=== PATIENT | male | born 1935 | race Caucasian/White ===

== ENCOUNTER → 2017-08-27 | Outpatient (CLI) | payer MEDICARE, OTHER ==
[~2017-08-27] MED LIST: AMLO5TAB2 PO; ATOR10TA15 PO; FLUT50SP EACH NARE; HYDR-3516 PO; MELO15TA20 PO; METO50TA PO; OMEP20TA93 PO; VALS160T6 PO
[2017-08-27 09:27] LABS: AUTOMATED NEUTROPHIL # 4.6 TH/MM3 (1.8-7.7); BASOPHIL # 0.1 TH/MM3 (0-0.2); BASOPHIL % 0.7 % (0.0-2.0); EOSINOPHIL # 0.3 TH/MM3 (0-0.4); EOSINOPHIL % 4.4 % (0.0-4.0); HEMATOCRIT 45.7 % (39.0-51.0); HEMOGLOBIN 15.4 GM/DL (13.0-17.0); LYMPH % 27.6 % (9.0-44.0); LYMPHOCYTE # 2.1 TH/MM3 (1.0-4.8); MEAN CELL VOLUME 86.8 FL (80.0-100.0); MEAN CORPUSCULAR HEMOGLOBIN 29.3 PG (27.0-34.0); MEAN CORPUSCULAR HGB CONC 33.7 % (32.0-36.0); MEAN PLATELET VOLUME 8.9 FL (7.0-11.0); MONOCYTE # 0.5 TH/MM3 (0-0.9); NEUT % 60.3 % (16.0-70.0); PLATELET COUNT 206 TH/MM3 (150-450); RED BLOOD COUNT 5.27 MIL/MM3 (4.50-5.90); RED CELL DISTRIBUTION WIDTH 13.8 % (11.6-17.2); WHITE BLOOD COUNT 7.6 TH/MM3 (4.0-11.0)
[2017-08-27 09:29] LABS: INTERNATIONAL NORMALIZED RATIO 1.1 RATIO; PROTHROMBIN TIME - PATIENT 11.5 SEC (9.8-11.6)
[2017-08-27 09:31] LABS: BILIRUBIN, URINE NEG (NEG); BLOOD, URINE NEG (NEG); GLUCOSE,URINE NEG (NEG); HYALINE CAST, URINE 7 /lpf (RARE); KETONE, URINE NEG (NEG); MUCUS URINE FEW /lpf (OCC); NITRITE,URINE NEG (NEG); PH, URINE 6.5 (5.0-8.5); URINE COLOR YELLOW (YELLW/STRAW); URINE LEUKOCYTE ESTERASE NEG (NEG)
[2017-08-27 09:48] LABS: ALBUMIN 3.7 GM/DL (3.4-5.0); AST (GOT) 12 U/L (15-37); BICARBONATE 29.5 MEQ/L (21.0-32.0); BLOOD UREA NITROGEN 19 MG/DL (7-18); CALCIUM 9.3 MG/DL (8.5-10.1); CHLORIDE 106 MEQ/L (98-107); CREATININE 1.24 MG/DL (0.60-1.30); GLOMERULAR FILTRATION RATE 56 ML/MIN (>89); GLUCOSE,FASTING 104 MG/DL (74-99); SODIUM (NA) 142 MEQ/L (136-145)
[2017-08-27 09:49] LABS: ALT (GPT) 22 U/L (12-78)
[2017-08-27 09:51] LABS: ALKALINE PHOSPHATASE 90 U/L (45-117); TOTAL BILIRUBIN ADULT 0.7 MG/DL (0.2-1.0); TOTAL PROTEIN 7.3 GM/DL (6.4-8.2)
--- NOTE | 2017-08-27 11:14 | RADRPT ---
EXAM DATE/TIME: 08/27/2017 11:03 [facility] COMPARISON: No previous studies available for comparison. INDICATIONS : Evaluate for pneumonia, pneumothorax or communicable disease, Pre op laminectomy. MEDICAL HISTORY : Hypertension. SURGICAL HISTORY : aortic valve replacement ENCOUNTER: Initial ACUITY: 1 day PAIN SCORE: 0/10 LOCATION: Bilateral chest FINDINGS: PA and lateral views of the chest demonstrate the lungs to be symmetrically aerated without evidence of mass, infiltrate or effusion. Sternal wires previous bypass noted and valve replacement noted.. The cardiomediastinal contours are unremarkable. Osseous structures are intact. CONCLUSION: No acute disease. Bennett Morton MD FACR on August 27, 2017 at 11:10 Board Certified Radiologist. This report was verified electronically.
--- NOTE | 2017-08-27 20:55 | EKG ---
Date Performed: 08/27/2017 Time Performed: 09:21:46 PTAGE: 81 years EKG: Sinus rhythm LEFT ANTERIOR FASCICULAR BLOCK SEPTAL MYOCARDIAL INFARCTION, OF INDETERMINATE AGE ABNORMAL ECG NO PREVIOUS TRACING DOCTOR: Jones Castillo Interpretating Date/Time 08/27/2017 20:54:59
== END ==
LOC: CPRE 08:38
PROVIDERS: ATTEND Neurological Surgery
DX: Z01.812 Encounter for preprocedural laboratory examination (principal); Z01.811 Encounter for preprocedural respiratory examination; Z01.810 Encounter for preprocedural cardiovascular examination; M51.36 Other intervertebral disc degeneration, lumbar region; I44.4 Left anterior fascicular block
CPT/HCPCS: 36415; 71046; 80053; 81001; 85025; 85610; 85730; 87640; 87641; 93005

== ENCOUNTER 2017-09-03 13:15 | Inpatient (IN) | payer MEDICARE, OTHER ==
[~2017-09-03] VITALS: Ht 167.6 cm; Wt 80.0 kg
[~2017-09-03 13:15] MED LIST changes: -HYDR-3516 PO
[2017-09-05] MEDS ORDERED: LACTATED RINGER'S 1000 ML IV PRN (09:30)
[2017-09-05] MEDS ORDERED: POVIDONE IODINE 5% (ANTISEPSIS KIT) 4 APPLICATIONS EACH NARE PRN (09:30)
[2017-09-05] MEDS ORDERED: SODIUM CHLORID 0.9% 500 ML IV PRN (09:30)
[2017-09-05] MEDS ORDERED: VANCOMYCIN 1 GM/200 ML PREMIX ON-CALL IV SCH (09:30)
[2017-09-05] MEDS ORDERED: METOPROLOL TARTRATE 25 MG TAB PO PRN (09:30)
[2017-09-05] MEDS ORDERED: INSULIN HUMAN REGULAR 1,000 UNITS/10 ML VIAL SQ PRN (09:30)
[2017-09-05] MEDS ORDERED: CHLORHEXIDINE GLUCONATE 2 % 1 PACK (2 CLOTHS) TOPICAL PRN (09:30)
[2017-09-05] MEDS ORDERED: VANCOMYCIN HCL 1000 MG VIAL ONE (11:25)
[2017-09-05] MEDS ORDERED: GELFOAM SIZE 100 ONE (11:25)
[2017-09-05] MEDS ORDERED: HEPARIN SODIUM - SQ 10,000 UNITS/ML VIAL ONE (11:25)
[2017-09-05] MEDS ORDERED: ceFAZolin 2 GM PREMIX 50 ML ONE (11:25)
[2017-09-05] MEDS ORDERED: THROMBIN (TOPICAL) 5,000 UNIT VIAL ONE (11:25)
[2017-09-05] MEDS ORDERED: ePHEDrine/NS 25 MG/5 ML SYRINGE IV ONE (12:00)
[2017-09-05] MEDS ORDERED: ceFAZolin INJ 1,000 MG VIAL IV ONE ×2 (12:00→16:25)
[2017-09-05] MEDS ORDERED: LIDOCAINE HCL 1% PF 5 ML SYRINGE OTHER ONE (12:00)
[2017-09-05] MEDS ORDERED: SODIUM CHLORID 0.9% 500 ML INJ 500 ML IV ONE (12:00)
[2017-09-05] MEDS ORDERED: ONDANSETRON HCL 4 MG/2 ML VIAL IV ONE (12:00)
[2017-09-05] MEDS ORDERED: ROCURONIUM INJ 50 MG/5 ML SYRINGE IV PUSH ONE (12:00)
[2017-09-05] MEDS ORDERED: DEXAMETHASONE SOD PHOS 4 MG/ML VIAL IV ONE (12:00)
[2017-09-05] MEDS ORDERED: PROPOFOL 200 MG/20 ML AMP IV ONE (12:00)
[2017-09-05] MEDS ORDERED: PHENYLEPH/NS 1000 MCG/10 ML SYR IV ONE (12:00)
[2017-09-05] MEDS ORDERED: LACTATED RINGER'S 1000 ML INJ 1,000 ML IV ONE (12:00)
[2017-09-05] MEDS ORDERED: NORMOSOL R INJ 1,000 ML IV ONE (12:00)
[2017-09-05] MEDS ORDERED: PHENYLEPHRINE HCL 10 MG/ML VIAL IV ONE (12:00)
[2017-09-05] MEDS ORDERED: BUPIVACAINE HCL PF 0.25% 30 ML VIAL ONE (13:47)
[2017-09-05] MEDS ORDERED: LIDOCAINE 0.5%/EPINEPHrine 1:200,000 SOLN 50 ML VIAL ONE (13:47)
[2017-09-05] MEDS ORDERED: BUPIVACAINE HCL PF 0.5% 30 ML VIAL ONE (13:50)
[2017-09-05] MEDS ORDERED: PROPOFOL 500 MG/50 ML INJ 200 ML ONE (16:16)
[2017-09-05] MEDS: NS + KCL 20 MEQ INJ 1,000 ML IV SCH (17:34)
--- NOTE | 2017-09-05 17:38 | PD.OP ---
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 Microsurgical dissection Anesthesia: general Surgeon: Mikel Smith Medical Records Secretary(s): Emily blue Operation and Findings: INDICATIONS FOR THE SURGICAL PROCEDURE Mr Yi is a 81 year-old male who presented with intractable mechanical back pain and suzi evidence of L4 and L5 lower extremity radiculopathy. He has failed maximum nonsurgical management including multiple modalities of conservative treatment as well as pain management interventions by an interventional pain specialist. A surgical decompression and arthrodhesis were indicated as a last resort. The [id number] details of the procedure, indications, alternatives, risks and potential complications were fully discussed with the patient. The patient fully understood. All the questions were answered. No guarantees were given. He voiced requesting the procedure and provided informed consents. He was offered the alternative of delaying the procedure and continuing with nonsurgical management. DETAILS OF THE SURGICAL PROCEDURE Prior to the procedure, the procedure, risks, and potential complications revisited with the patient. Placement of electrodes for intraoperative neurophysiological monitoring was completed. The patient was taken to the operative room, and following induction of general anesthesia, endotracheal intubation was performed. A Medina catheter, bilateral LUTHER hose and sequential compression devices were placed and kept throughout the procedure. The patient was positioned prone, over a Paul table over a bolsters. All pressure in the preoperative surgical holding room points were carefully padded with eggcrate and gel mattress. The eyes were tapped shut after ointment was applied by the anesthesiologist to prevent corneal abrasion. A Nithya hugger was placed over the expossed lower body to maintain control of the core body temperature. The electrophysiological team placed the needles and electrodes in their proper location and baseline SSEP's and motor evoked potentials were registered. The entrance to each pedicles was marked using a C arm. The lumbar region was prepped and draped in the usual sterile fashion. The surgical procedure was performed in several steps as follow: SURGICAL APPROACH Once the patient was positioned, a localizing cross-table lateral and AP x-ray was performed with a C-arm. Two paramedian small incisions were outlined on the skin approximately 3cm from the midline. The skin incisions were made with a # 10 blade. Small bleeders were controlled with the cautery. The dissection was then carried out into deeper planes and through the thoracolumbar fascia with a Bovie. The intermuscular septum was identified and the muscles were blunted dissected along the septum. The facets and transverse process of L3-4, L4,5 were exposed and the proper anatomical landmarks were identidied. A microsurgical self-retaining retractor was placed on the incision, and a localizing lateralizing cross-table x-ray was performed with an instrument underneath a lamina of the lumbar spine. INSTRUMENTAL FIXATION At this point in the procedure, placement of bilateral transpedicular screws was necessary for stabilization of the spine. Initially, the entry point for the screw was selected anatomically at the junction of the facet, with the transverse process, and the pars interarticularis at L3-4, L4,5. This was started with a Giamshetti needle, followed by the use of K wire. A tap was used to create the threads for the screws. Finally bilateral transpedicular screws were carefully placed bilaterally at L3, L4, and L5 under fluoroscopic visualization. An appropriate purchase was achieved with all screws. The position of each screw was assessed anatomically with an AP, lateral, oblique Xrays. An intraoperative scan view of the spine was then performed using the iso -centric c-arm. Each screw was then assessed electrophysiologically stimulating each screw with a nerve stimulator. SURGICAL DECOMPRESSION There was significant mass effect with compression of the neural structures. In order to relieve neural compression, it was necessary to perform a decompressive laminectomy, with decompression of the spinal canal and bilateral lateral recesses. Note that the scope of such decompression was significantly more extensive than the minimal exposure necessary to perform an interbody fusion, as there was extreme facet arthropathy with severe degeneration of the disk spaces and stenosis cause by the hyperthrophic joint facets. At this point of the procedure the operative microscope was draped in the usual sterile fashion and brought to the field. The rest of the surgical procedure was performed using microdissection technique with the exception of the closure. Under the operating microscope, a decompressive laminectomy was carried out at L3-4, L4,5 as follow: The laminae, base of the spinous processes and facets were carefully drilled exposing the ligamentum flavum. The facets were abnormal with severe spondylolisthesis and gross mechanical instability. A large disk protusion was compressing the neural structures and exiting nerve roots. A near complete facetectomy was necessary resulting in further mechanical instability. The ligamentum flavum appeared hypertrophic, resulting on mass effect on the dorsal surface of the neural structures. The superior free border of the ligamentum flavum was elevated with a ligament dissector and the ligamentum flavum was removed with a 3 and 4 mm Kerrison forceps. The ligament was very adherent to the dural sac and during the dissection, ans extreme care was taken during the dissection. The exiting nerve roots were identified, and a wide foraminotomy was performed with a Kerrison in their trajectory towards the neural foramen. Epidural veins located laterally to the dural sac were coagulated with the bipolar cautery, and then incised using microscissors. Gentle medial retraction of the dural sac allowed me to expose the disc space for the discectomy. Upon completion of the discectomy, an excellent decompression of the neural structures was achieved. Increased motion was noted thorough the procedure, which was consistent with mechanical instability at L3-4, L4,5. INTERBODY ARTHRODHESIS In order to correct the narrowing of the disk space and maintain distraction of the space, and to achieve a solid interbody fusion, it was necessary the insertion of an interbody device into the disk space. Otherwise, the disk space would collapse, compromising the result of the surgical procedure. At this point of the procedure, the annulus fibrosus of the disk was carefully coagulated with a bipolar cautery and incised using an 11 bladed knife. Then, a microdiscectomy was carried out in a standard fashion using a combination of straight and up-biting pituitary forceps. A reverse angle curette was applied underneath the posterior longitudinal ligament, and used to push the disk fragments into the disk space, so they can be safely removed with a pituitary forceps. Once the discectomy was completed, it was necessary to decorticate the endplates, in order to eliminate the cartilaginous endplate and to expose healthy bone appropriate to perform the interbody fusion. The endplates at L4,5 were then thoroughly decorticated using increasing size bone gayla and ring curets, eliminating the cartilaginous fragments from both, the superior and inferior endplates. A disk space distractor was applied to the pedicle screws and gentle distraction was applied. This maneuver was assisted by the use of a disk distractor. Increased motility was noted at the disk, which was consistent with instability due to facet arthropathy. Once a thorough preparation of the disk space was achieved, the disk space was irrigated with antibiotic solution, and the interbody fusion was performed by carefully impacting PPEK cages filled with autologous iliac crest bone graft. The use of several shoe impactors with different angulation, allowed me for an excellent, proper position of the interbody cages at L4,5. A solid position of the cage with good purchase was achieved. The position of the cages were assessed anatomically with a probe and radiologically with the C-arm. POSTEROLATERAL FUSION The posterolateral fusion is a critical component to the procedure, to prevent future fatigue and failure of the instrumental fixation. Initially, the transverse processes of the vertebral bodies, lateral surface of the facets and the lateral gutters of the spine were carefully cleaned, eliminating all soft tissue and muscle attachments. The area was then irrigated with a large amount of antibiotic solution. Subsequently, the transverse processes, lateral surface of the facets, and lateral gutters of the spine were thoroughly decorticated using the TPS drill with a 5mm cutting juanjo, exposing cancellous bone, in preparation for the posterolateral fusion. The incision was again irrigated with antibiotic solution. Then, the posterolateral fusion was then performed by carefully packing the lateral gutters of the spine at L3-4, L4,5 with autologous iliac crest bone combined with demineralized bone matrix. I packed as much bone as possible. COMPLETION OF THE INSTRUMENTATION AND CLOSURE The rods were brought to the field, applied to all the screws, and the screw caps were sequentially applied. Compression was performed between the pedicle screws, and final tightening of the screws was completed using a torque wrench. The incision was again thoroughly irrigated with several liters of antibiotic solution, and hemostasis secured with the bipolar cautery. A Valsalva Maneuver performed by the anesthesiologist failed to show any evidence of cerebrospinal fluid leak or bleeding. A 7 mm Paul-Nolan drain was left in the epidural space and externalized through a separate stab incision. The incision was then closed in planes. 0 Vicryl was used in an interrupted fashion to close the thoracolumbar fascia and the superficial fascia. The subcutaneous tissue was then approximated using 3-0 Vicryl in an interrupted fashion. Special care was taken to avoid space. The skin was then closed with 4-0 Vicryl in a running, subcuticular fashion. Dermabond was applied to the skin. Each plane of closure was irrigated with antibiotic solution. At the end of the procedure the sponge, needle and instrument counts were all correct. Estimated blood loss was 300 cc. No blood transfusion was given. The entire procedure was performed using continuous electrophysiological monitoring of the somatosensorial evoked potentials and EMG. The patient received prophylactic antibiotics. The patient was then extubated and transferred to the recovery room in stable condition. Mikel Smith MD Sep 05, 2017 17:38
[2017-09-05] MEDS ORDERED: ACETAMINOPHEN 325 MG TAB PO PRN (17:45)
[2017-09-05] MEDS ORDERED: NALOXONE HCL 0.4 MG/ML AMP IV PUSH PRN (17:45)
[2017-09-05] MEDS ORDERED: MORPHINE SULFATE 4 MG/ML INJ IV PUSH PRN ×2 (17:45)
[2017-09-05] MEDS ORDERED: diphenhydrAMINE HCL 50 MG/ML VIAL IV PUSH PRN (17:45)
[2017-09-05] MEDS ORDERED: HYDROmorphone HCL PCA 6 MG/30 ML IV SCH (17:45)
[2017-09-05] MEDS ORDERED: MIDAZOLAM HCL 2 MG/2 ML VIAL ONE (18:30)
[2017-09-05] MEDS ORDERED: DO NOT ADM ANY ANTICOAGULANT DRUGS PRN (18:45)
--- NOTE | 2017-09-05 18:49 | RADRPT ---
EXAM DATE/TIME: 09/05/2017 12:33 [facility] COMPARISON: No previous studies available for comparison. INDICATIONS : Fusion L3,L4 and L4,L5 with screws and rods placement. MEDICAL HISTORY : Hypertension. SURGICAL HISTORY : aortic valve replacement ENCOUNTER: Initial ACUITY: 1 day PAIN SCORE: Non-responsive. LOCATION: Lumbar spine. FINDINGS: Two view examination was performed. Transpedicular screws are seen at L3-L4 L5 levels. These are secu red by vertical rods. A stabilization device at the L4-5 disc level. The hardware is well-placed. CONCLUSION: Successful placement of surgical hardware. Home Kauffman MD on September 05, 2017 at 18:46 Board Certified Radiologist. This report was verified electronically.
[2017-09-05] MEDS ORDERED: *MEPERIDINE 25 MG INJ VIAL PERIprocedural Use ONLY ONE (18:50)
[2017-09-05] MEDS ORDERED: *morphine SULFATE 4 MG/ML PERIprocedure ONLY ONE (20:26)
[2017-09-05] MEDS: FLUTICASONE PROPIONATE 50 MCG/ACT 16 GM NASAL SPRAY EACH NARE SCH (20:33)
[2017-09-05] MEDS: ATORVASTATIN 10 MG TAB PO SCH (21:00)
[2017-09-05] MEDS ORDERED: PCA - TOTAL MG DILAUDID DELIVERED PER SHIFT SCH (22:00)
[2017-09-05] MEDS: ceFAZolin 2 GM PREMIX 50 ML IV SCH (23:20)
[2017-09-06] MEDS: NS + KCL 20 MEQ INJ 1,000 ML IV SCH ×3 (05:00→23:34)
[2017-09-06 05:43] LABS: BASOPHIL % 0.2 % (0.0-2.0); HEMATOCRIT 31.9 % (39.0-51.0); HEMOGLOBIN 10.9 GM/DL (13.0-17.0); LYMPH % 7.3 % (9.0-44.0); LYMPHOCYTE # 0.9 TH/MM3 (1.0-4.8); MEAN CELL VOLUME 86.9 FL (80.0-100.0); MEAN CORPUSCULAR HEMOGLOBIN 29.8 PG (27.0-34.0); MEAN CORPUSCULAR HGB CONC 34.3 % (32.0-36.0); MEAN PLATELET VOLUME 8.7 FL (7.0-11.0); MONO % 6.7 % (0.0-8.0); MONOCYTE # 0.8 TH/MM3 (0-0.9); NEUT % 85.8 % (16.0-70.0); PLATELET COUNT 185 TH/MM3 (150-450); RED BLOOD COUNT 3.67 MIL/MM3 (4.50-5.90); RED CELL DISTRIBUTION WIDTH 13.9 % (11.6-17.2); WHITE BLOOD COUNT 11.7 TH/MM3 (4.0-11.0)
[2017-09-06 06:01] LABS: BICARBONATE 26.4 MEQ/L (21.0-32.0); CALCIUM 7.7 MG/DL (8.5-10.1); CREATININE 1.12 MG/DL (0.60-1.30)
[2017-09-06] MEDS: ceFAZolin 2 GM PREMIX 50 ML IV SCH ×2 (07:50→15:29)
[2017-09-06 09:00] VITALS: BP_SYST 121; BP_SYST 129; BP_DIAS 62; BP_DIAS 64; PULSE 75; RESP 20; TEMP 98.4; O2SAT 96
[2017-09-06] MEDS: FLUTICASONE PROPIONATE 50 MCG/ACT 16 GM NASAL SPRAY EACH NARE SCH ×2 (09:00→19:57)
[2017-09-06] MEDS ORDERED: PANTOPRAZOLE SODIUM 40 MG VIAL IVP SCH (09:00)
[2017-09-06] MEDS ORDERED: METOPROLOL TARTRATE 50 MG TAB PO SCH (09:00)
[2017-09-06] MEDS: PANTOPRAZOLE SOD 20 MG DELAYED RELEASE TAB PO SCH (09:58)
[2017-09-06 10:00] VITALS: PULSE 83
[2017-09-06] MEDS: amLODIPine BESYLATE 5 MG TAB PO SCH (10:00)
--- NOTE | 2017-09-06 10:16 | PD.CONS ---
[facility] By [facility] Reason for Consult Medical management Primary Care Physician Non-Staff Diagnoses: History of Present Illness Mr. Yi is an 81-year-old male with a history of intractable back pain and evidence of L4 and L5 lower extremity radiculopathy who underwent neurosurgical decompression and arthrodesis on 09/05/[address] Smith. Patient has a history of hyperlipidemia, hypertension and obstructive sleep apnea. He uses CPAP at home. At the time of this interview, patient is somewhat agitated. He was somewhat frustrated during this interview. He inquires about sitting up in bed and other activities. After discussing with physical therapy and given his L- spine surgery, we discussed with neurosurgery PA who will evaluate him later. Will obtain TLSO brace and start regular diet. Patient denies any chest pain, shortness of breath, fever or chills. No changes in bowel or bladder habits. Review of Systems Except as stated in HPI: all other systems reviewed are Neg Past Family Social History Allergies: Coded Allergies: No Known Allergies (Unverified , 09/05/17) Past Medical History Hypertension, hyperlipidemia, intractable back pain Past Surgical History Aortic valve replacement, bilateral hip replacement, herniated disc repair Reported Medications Current Medications Medications (Trade) Dose Ordered Sig/Mart Route Start Time Stop Time Status Last Admin (Narcan Inj) 0.4 mg UNSCH PRN IV PUSH 09/05/17 17:45 (Benadryl Inj) 25 mg Q6H PRN IV PUSH 09/05/17 17:45 (Dilaudid [employer] Inj) 6 mg UNSCH IV 09/05/17 17:45 09/05/17 18:47 [employer] Dosage Infused (Pha) 1 Q8HR .XX 09/05/17 22:00 Potassium Chloride/Sodium Chloride 1,000 ml @ 100 mls/hr Q10H IV 09/05/17 17:34 09/06/17 05:00 Cefazolin Sodium/ Dextrose 50 ml @ 100 mls/hr Q8H IV 09/06/17 00:00 09/06/17 16:29 09/06/17 07:50 (Protonix Inj) 40 mg DAILY IVP 09/06/17 09:00 (Morphine Inj) 2 mg Q2H PRN IV PUSH 09/05/17 17:45 (Morphine Inj) 4 mg Q2H PRN IV PUSH 09/05/17 17:45 (Tylenol) 650 mg Q4H PRN PO 09/05/17 17:45 (Norvasc) 5 mg DAILY PO 09/06/17 09:00 09/06/17 10:00 (Lipitor) 10 mg HS PO 09/05/17 21:00 (Flonase Chadd Spr) 1 spray BID EACH NARE 09/05/17 21:00 (Lopressor) 50 mg DAILY PO 09/06/17 09:00 09/06/17 09:57 (Protonix) 20 mg DAILY PO 09/06/17 09:00 09/06/17 09:58 Miscellaneous Information ALL NURSING DEPARTME... UNSCH PRN .XX 09/05/17 18:45 09/06/17 18:44 Family History Noncontributory Social History Patient denies using alcohol, tobacco, illicit drugs Physical Exam Vital Signs Vital Signs Date Time Temp Pulse Resp B/P (MAP) Pulse Ox O2 Delivery O2 Flow Rate FiO2 09/06/17 06:00 74 16 99/53 (68) 96 Nasal Cannula 3 09/06/17 05:00 76 16 99/56 (70) 94 Nasal Cannula 3 09/06/17 04:00 78 16 104/54 (71) 96 Nasal Cannula 3 09/06/17 03:00 76 16 98/54 (69) 95 Nasal Cannula 3 09/06/17 02:00 82 16 101/59 (73) 94 Nasal Cannula 3 09/06/17 01:00 78 16 102/56 (71) 94 Nasal Cannula 3 09/06/17 00:00 74 16 100/57 (71) 95 Nasal Cannula 3 09/05/17 23:00 82 16 100/58 (72) 95 Nasal Cannula 3 09/05/17 22:00 80 16 104/56 (72) 95 Nasal Cannula 3 09/05/17 21:15 97.4 80 16 101/57 (72) 95 Nasal Cannula 3 09/05/17 20:15 83 20 120/59 (79) 95 115/61 (79) 09/05/17 19:00 83 20 123/59 (80) 95 119/61 (80) 18 18:47 20 09/05/17 18:45 85 20 124/63 (83) 95 116/62 (80) 09/05/17 18:30 83 20 112/61 (78) 95 104/59 (74) 09/05/17 18:15 97.6 85 20 95/53 (67) 95 Nasal Cannula 2 100/54 (69) Physical Exam GENERAL: This is a well-nourished, well-developed patient, in no apparent distress. SKIN: No rashes, ecchymoses or lesions. Warm and dry. HEAD: Atraumatic. Normocephalic. No temporal or scalp tenderness. EYES: Pupils equal round and reactive. No injection or drainage. ENT: Nose without bleeding, purulent drainage or septal hematoma. Airway patent. NECK: Trachea midline. No lymphadenopathy. Supple, nontender, no meningeal signs. CARDIOVASCULAR: Regular rate and rhythm without murmurs, gallops, or rubs. No JVD. RESPIRATORY: Clear to auscultation. Breath sounds equal bilaterally. No wheezes , rales, or rhonchi. GASTROINTESTINAL: Abdomen soft, non-tender, nondistended. No guarding. MUSCULOSKELETAL: Extremities without clubbing, cyanosis, or edema. Status post L3-L4, L4-L5 laminectomy. NEUROLOGICAL: Awake and alert. Cranial nerves II through XII intact. No focal neurological deficits. Normal speech. Laboratory Laboratory Tests Test 09/06/17 05:20 White Blood Count 11.7 Red Blood Count 3.67 Hemoglobin 10.9 Hematocrit 31.9 Mean Corpuscular Volume 86.9 Mean Corpuscular Hemoglobin 29.8 Mean Corpuscular Hemoglobin Concent 34.3 Red Cell Distribution Width 13.9 Platelet Count 185 Mean Platelet Volume 8.7 Neutrophils (%) (Auto) 85.8 Lymphocytes (%) (Auto) 7.3 Monocytes (%) (Auto) 6.7 Eosinophils (%) (Auto) 0.0 Basophils (%) (Auto) 0.2 Neutrophils # (Auto) 10.0 Lymphocytes # (Auto) 0.9 Monocytes # (Auto) 0.8 Eosinophils # (Auto) 0.0 Basophils # (Auto) 0.0 CBC Comment DIFF FINAL Differential Comment Blood Urea Nitrogen 20 Creatinine 1.12 Random Glucose 127 Calcium Level 7.7 Sodium Level 140 Potassium Level 3.7 Chloride Level 107 Carbon Dioxide Level 26.4 Anion Gap 7 Estimat Glomerular Filtration Rate 63 Result Diagram: 09/06/1720 09/06/17 0520 Imaging Last Impressions Lumbar Spine X-Ray 09/05/17 0000 Signed Impressions: Service Date/Time: Tuesday, September 05, 2017 12:33 - CONCLUSION: Successful placement of surgical hardware. Home Kauffman MD Assessment and Plan Assessment and Plan Mr. Yi is an 81-year-old male with a history of hypertension, hyperlipidemia, obstructive sleep apnea who underwent L3-L4, L4-L5 laminectomy on 09/05/2017. Hospital service was consulted for medical management. L3-L4, L4-5 degenerative disk disease with spondylolisthesis Secondary spinal stenosis s/p Laminectomy, interbody arthrodesis D/C [employer] pump, patient is not using it. Pain management with acetaminophen, Elizabeth as needed and morphine IV for breakthrough. Will order TLSO brace Hypertension Hyperlipidemia Continue home medications amlodipine and atorvastatin. Obstructive sleep apnea -we will ask RT to evaluate his CPAP machine that he brought from home. He can use CPAP machine at night. Full code. SCDs. Thank you for the consult. We will continue to follow this patient with you. Claribel Fountain DO Sep 06, 2017 10:16 am
[2017-09-06 12:00] VITALS: BP 162/77; PULSE 80; RESP 21; TEMP 98.4; O2SAT 96
--- NOTE | 2017-09-06 12:11 | HHI.NSPN ---
(Chalo Zacarias) History Chief Complaint: Sore across the mid lumbar region. (Chalo Zacarias) Interval History 09/05: The patient went to the operating room for a L3-4 and L4-L5 laminectomy with interbody arthrodhesis using a PEEK cage, instrumental fixation and posterolateral fusion. Post-operatively he was transferred to the ISC unit for further care and monitoring due to hypotension. 09/06: When seen this afternoon the patient is awake and alert working on his cellphone. He says he is doing good. Across the mid lumbar region he says he is "sore" but it isn't painful. He has no pain radiation down the right lower extremity now. He denies any numbness or tingling to the extremities or any pain to the left lower extremity. He denies any headache, dizziness, shortness of breath, chest pain, palpitations, irregular heartbeat, abdominal pain or nausea. Upon examination his sensation is intact and his muscle strength is strong to the lower extremities. He does have mild tenderness to palpation across the mid lumbar back. (Chalo Zacarias) Exam Results 09/04/17 09/04/17 09/05/17 09/05/17 09/06/17 09/06/17 05:59 17:59 05:59 17:59 05:59 17:59 Intake Total 2500 ml 1114 ml Output Total 800 ml 230 ml 550 ml Balance 1700 ml -230 ml 564 ml Intake IV Total 1114 ml Other 2500 ml Output Urine Total 50 ml Drainage Total 130 ml 50 ml Estimated Blood Loss 500 ml Other 300 ml 100 ml 450 ml Vital Signs Date Time Temp Pulse Resp B/P (MAP) Pulse Ox O2 Delivery O2 Flow Rate FiO2 09/06/17 08:35 74 16 110/59 (76) 97 Nasal Cannula 3 09/06/17 07:00 72 16 98/55 (69) 97 Nasal Cannula 3 09/06/17 06:00 74 16 99/53 (68) 96 Nasal Cannula 3 09/06/17 05:00 76 16 99/56 (70) 94 Nasal Cannula 3 09/06/17 04:00 78 16 104/54 (71) 96 Nasal Cannula 3 09/06/17 03:00 76 16 98/54 (69) 95 Nasal Cannula 3 09/06/17 02:00 82 16 101/59 (73) 94 Nasal Cannula 3 09/06/17 01:00 78 16 102/56 (71) 94 Nasal Cannula 3 09/06/17 00:00 74 16 100/57 (71) 95 Nasal Cannula 3 09/05/17 23:00 82 16 100/58 (72) 95 Nasal Cannula 3 09/05/17 22:00 80 16 104/56 (72) 95 Nasal Cannula 3 09/05/17 21:15 97.4 80 16 101/57 (72) 95 Nasal Cannula 3 09/05/17 20:15 83 20 120/59 (79) 95 115/61 (79) 09/05/17 19:00 83 20 123/59 (80) 95 119/61 (80) 09/05/17 18:47 20 09/05/17 18:45 85 20 124/63 (83) 95 116/62 (80) 09/05/17 18:30 83 20 112/61 (78) 95 104/59 (74) 09/05/17 18:15 97.6 85 20 95/53 (67) 95 Nasal Cannula 2 100/54 (69) 09/05/17 09:34 98.7 76 16 174/98 (123) 98 (Chalo Zacarias) Physical Examination GENERAL: Awake & alert in bed working with his cellphone. His affect is normal & he readily interacts. No apparent distress. HEENT: Normocephalic, atraumatic. CARDIOVASCULAR: S1S2 w/RRR w/o M/G/R. Monitor is sinus rhythm w/o any ectopy noted. RESPIRATORY: CTAB w/o W/R/R, equal excursion, non-laboured, on RA. GASTROINTESTINAL: Abdomen soft, non-tender, positive bowel sounds. MUSCULOSKELETAL: WRIGHT spontaneously & purposefully w/o difficulty. No evident clubbing or deformity. The midline lumbar spine and laterally on each side is mildly TTP, the dressing is intact w/some sanguinous drainage to the mid superior portion. There is a NICOLASA drain to bulb suction w/serosanguinous drainage. There is no active drainage noted to either the incision or drain insertion site note. NEUROLOGICAL: AAOx3. Speech clear & appropriate. Follows commands w/o difficulty. Sensation intact to both lower extremities to light touch. Motor strength to all major flexion & extension muscle groups of the lower extremities is 4+ to 5/5. (Chalo Zacarias) Lab, Micro, Other Results Recent Impressions Lumbar Spine X-Ray 09/05/17 0000 Signed Impressions: Service Date/Time: Tuesday, September 05, 2017 12:33 - CONCLUSION: Successful placement of surgical hardware. Home Kauffman MD Laboratory Tests Test 09/06/17 05:20 White Blood Count 11.7 TH/MM3 Red Blood Count 3.67 MIL/MM3 Hemoglobin 10.9 GM/DL Hematocrit 31.9 % Mean Corpuscular Volume 86.9 FL Mean Corpuscular Hemoglobin 29.8 PG Mean Corpuscular Hemoglobin Concent 34.3 % Red Cell Distribution Width 13.9 % Platelet Count 185 TH/MM3 Mean Platelet Volume 8.7 FL Neutrophils (%) (Auto) 85.8 % Lymphocytes (%) (Auto) 7.3 % Monocytes (%) (Auto) 6.7 % Eosinophils (%) (Auto) 0.0 % Basophils (%) (Auto) 0.2 % Neutrophils # (Auto) 10.0 TH/MM3 Lymphocytes # (Auto) 0.9 TH/MM3 Monocytes # (Auto) 0.8 TH/MM3 Eosinophils # (Auto) 0.0 TH/MM3 Basophils # (Auto) 0.0 TH/MM3 CBC Comment DIFF FINAL Differential Comment Blood Urea Nitrogen 20 MG/DL Creatinine 1.12 MG/DL Random Glucose 127 MG/DL Calcium Level 7.7 MG/DL Sodium Level 140 MEQ/L Potassium Level 3.7 MEQ/L Chloride Level 107 MEQ/L Carbon Dioxide Level 26.4 MEQ/L Anion Gap 7 MEQ/L Estimat Glomerular Filtration Rate 63 ML/MIN (Chalo Zacarias) Medical Decision Making Impression and Plan Impression: Postoperative Diagnosis: L3-4, L4-5 degenerative disk disease with spondylolisthesis and secondary spinal stenosis The patient is doing well and he has improvement of his symptoms. He has no pain to the RLE and only soreness across the mid lower back. There are no sensory deficits to the lower extremities & muscle strength is strong. SBP intermittently into the mid to upper 90 mm Hg. NICOLASA drain output is 160 mL since surgery as of this morning. Reviewed labs for today. Leukocytosis most likely response to surgery. Anaemia. Decreased eGFR. POD #1 () s/p: L3-4, L4-L5 laminectomy, interbody arthrodhesis using PEEK cage and autologous bone graft, L3-4, L4-L5 instrumental fixation using transpedicular screws and rods, L3-4, L4-L5 posterolateral fusion using autologous bone graft and demineralized bone matrix. Microsurgical dissection Plan: Medical management per Hospitalist. Neuro checks. Monitor NICOLASA drain output. TLSO brace when OOB. Mobilise patient w/assistance. Physical Therapy eval & tx. Diet as tolerated. (Chalo Zacarias) Attending Statement The exam, history, and the medical decision-making described in the above note were completed with the assistance of the mid-level provider. I reviewed and agree with the findings presented. I attest that I had a [id number] encounter with the patient on the same day, and personally performed and documented my assessment and findings in the medical record. (Sinan Terry MD) Chalo Zacarias Sep 06, 2017 12:11 Sinan Terry MD Sep 08, 2017 23:19
[2017-09-06 14:00] VITALS: PULSE 87
[2017-09-06] MEDS ORDERED: MORPHINE SULFATE 4 MG/ML INJ IV PUSH PRN (14:00)
[2017-09-06 16:00] VITALS: BP 154/68; PULSE 80; RESP 21; TEMP 98.7; O2SAT 96
[2017-09-06] MEDS: ACETAMINOPHEN/HYDROcodone 325 MG/5 MG TAB PO PRN (19:57)
[2017-09-06] MEDS: ATORVASTATIN 10 MG TAB PO SCH (19:57)
[2017-09-06 20:00] VITALS: BP 119/60; PULSE 90; RESP 18; TEMP 99.2; O2SAT 92
[2017-09-07] VITALS (13 sets, daily range): BP systolic 129–157; BP diastolic 71–78; PULSE 89–103; RESP 16–20; TEMP 98.4–99.4; O2SAT 88–95
[2017-09-07] MEDS: NS + KCL 20 MEQ INJ 1,000 ML IV SCH ×2 (00:11→20:09)
[2017-09-07] MEDS: ACETAMINOPHEN/HYDROcodone 325 MG/5 MG TAB PO PRN ×2 (08:50→20:04)
[2017-09-07] MEDS: amLODIPine BESYLATE 5 MG TAB PO SCH (08:52)
[2017-09-07] MEDS: PANTOPRAZOLE SOD 20 MG DELAYED RELEASE TAB PO SCH (08:52)
[2017-09-07] MEDS: FLUTICASONE PROPIONATE 50 MCG/ACT 16 GM NASAL SPRAY EACH NARE SCH ×2 (08:53→20:09)
[2017-09-07] MEDS: METOPROLOL TARTRATE 25 MG TAB PO SCH ×2 (08:55→20:04)
--- NOTE | 2017-09-07 09:57 | HHI.PR ---
Subjective Remarks Follow up for degenerative disk disease with spondylolisthesis. Patient is resting in bed, complains of 4 out of 10 pain in his lower back. No fever, chills. Objective Vitals Vital Signs Date Time Temp Pulse Resp B/P (MAP) Pulse Ox O2 Delivery O2 Flow Rate FiO2 09/07/17 07:30 91 09/07/17 03:51 93 09/07/17 03:19 CPAP 1.00 09/07/17 00:10 94 2.00 09/07/17 00:10 94 09/07/17 00:00 99.1 103 20 129/71 (90) 88 09/06/17 20:09 92 Bi-Pap 2.00 09/06/17 20:00 99.2 90 18 119/60 (79) 92 09/06/17 16:00 98.7 80 21 154/68 (96) 96 Arterial Line 09/06/17 16:00 80 09/06/17 16:00 99 Nasal Cannula 3.00 09/06/17 14:00 87 09/06/17 12:00 80 09/06/17 12:00 96 Nasal Cannula 3.00 09/06/17 12:00 98.4 80 21 162/77 (105) 96 Arterial Line 09/06/17 10:00 83 I/O 09/06/17 09/06/17 09/06/17 09/07/17 09/07/17 09/07/17 07:00 15:00 23:00 07:00 15:00 23:00 Intake Total 1114 ml 1280 ml 831 ml Output Total 540 ml 70 ml 870 ml 500 ml Balance 574 ml -70 ml 410 ml 331 ml Intake Oral 1280 ml 0 ml IV Total 1114 ml 831 ml Output Urine Total 50 ml 800 ml 500 ml Drainage Total 90 ml 20 ml 70 ml Other 450 ml # Voids 1 # Bowel Movements 0 0 Result Diagram: 09/06/17 0520 09/06/17 0520 Imaging Last Impressions Lumbar Spine X-Ray 09/05/17 0000 Signed Impressions: Service Date/Time: Tuesday, September 05, 2017 12:33 - CONCLUSION: Successful placement of surgical hardware. Home Kauffman MD Objective Remarks GENERAL: Alert, oriented x 3, NAD. SKIN: Warm and dry. HEAD: Normocephalic. EYES: No scleral icterus. No injection or drainage. NECK: Supple, trachea midline. No JVD or lymphadenopathy. CARDIOVASCULAR: Regular rate and rhythm without murmurs, gallops, or rubs. RESPIRATORY: Breath sounds equal bilaterally. No accessory muscle use. GASTROINTESTINAL: Abdomen soft, non-tender, nondistended. MUSCULOSKELETAL: No cyanosis, or edema. BACK: Nontender without obvious deformity. No CVA tenderness. Procedures 09/05/2017 L3-4, L4-L5 laminectomy, interbody arthrodhesis using PEEK cage and autologous bone graft, L3-4, L4-L5 instrumental fixation using transpedicular screws and rods, L3-4, L4-L5 posterolateral fusion using autologous bone graft and demineralized bone matrix. Microsurgical dissection A/P Assessment and Plan Mr. Yi is an 81-year-old male with a history of hypertension, hyperlipidemia, obstructive sleep apnea who underwent L3-L4, L4-L5 laminectomy on 09/05/2017. Hospital service was consulted for medical management. L3-L4, L4-5 degenerative disk disease with spondylolisthesis Secondary spinal stenosis s/p Laminectomy, interbody arthrodesis Pain management with acetaminophen, [place] as needed and morphine IV for breakthrough. TLSO brace Hypertension Hyperlipidemia Continue home medications amlodipine 5mg Qday and atorvastatin 10mg QHS. Obstructive sleep apnea - Home CPAP machine at night. Full code. SCDs. Claribel Fountain DO Sep 07, 2017 9:57 am
[2017-09-07] MEDS ORDERED: HYDR-3516 PO (11:08)
[2017-09-07] MEDS ORDERED: METO50TA PO (11:08)
[2017-09-07] MEDS ORDERED: WALKER WHEELS/F1 MIS (11:08)
--- NOTE | 2017-09-07 14:52 | HHI.NSPN ---
(Chalo Zacarias) History Chief Complaint: 2 out of 10 pain to the back. (Chalo Zacarias) Interval History 09/05: The patient went to the operating room for a L3-4 and L4-L5 laminectomy with interbody arthrodhesis using a PEEK cage, instrumental fixation and posterolateral fusion. Post-operatively he was transferred to the ISC unit for further care and monitoring due to hypotension. 09/06: When seen this afternoon the patient is awake and alert working on his cellphone. He says he is doing good. Across the mid lumbar region he says he is "sore" but it isn't painful. He has no pain radiation down the right lower extremity now. He denies any numbness or tingling to the extremities or any pain to the left lower extremity. He denies any headache, dizziness, shortness of breath, chest pain, palpitations, irregular heartbeat, abdominal pain or nausea. Upon examination his sensation is intact and his muscle strength is strong to the lower extremities. He does have mild tenderness to palpation across the mid lumbar back. 09/07: This afternoon the patient is asleep with his CPAP on. He awakens to voice and is alert after that. He says he a 2 out of 10 pain to the low back and no pain, numbness, tingling or weakness to the lower extremities. Physical Therapy evaluated the patient and recommended that he go home with Home Health for further therapy but the patient would like to go to an inpatient facility for several days in order to get his strength back since he is the caregiver for his . There is no change in his sensorimotor exam. (Chalo Zacarias) Exam Results 09/05/17 09/05/17 09/06/17 09/06/17 09/07/17 09/07/17 06:00 18:00 06:00 18:00 06:00 18:00 Intake Total 2500 ml 1114 ml 880 ml 1231 ml Output Total 800 ml 710 ml 940 ml 500 ml 950 ml Balance 1700 ml 404 ml -60 ml 731 ml -950 ml Intake Oral 880 ml 400 ml IV Total 1114 ml 831 ml Other 2500 ml Output Urine Total 850 ml 500 ml 950 ml Drainage Total 160 ml 90 ml Estimated Blood Loss 500 ml Other 300 ml 550 ml # Voids 1 # Bowel Movements 0 Vital Signs Date Time Temp Pulse Resp B/P (MAP) Pulse Ox O2 Delivery O2 Flow Rate FiO2 09/07/17 12:00 89 09/07/17 11:36 98.4 99 20 149/73 (98) 93 09/07/17 10:11 94 Nasal Cannula 2.00 09/07/17 09:58 99.0 90 20 154/74 (100) 94 09/07/17 07:30 91 09/07/17 03:51 93 09/07/17 03:19 CPAP 1.00 09/07/17 00:10 94 2.00 09/07/17 00:10 94 09/07/17 00:00 99.1 103 20 129/71 (90) 88 09/06/17 20:09 92 Bi-Pap 2.00 09/06/17 20:00 99.2 90 18 119/60 (79) 92 09/06/17 16:00 98.7 80 21 154/68 (96) 96 Arterial Line 09/06/17 16:00 80 09/06/17 16:00 99 Nasal Cannula 3.00 09/06/17 14:00 87 09/06/17 12:00 80 09/06/17 12:00 96 Nasal Cannula 3.00 09/06/17 12:00 98.4 80 21 162/77 (105) 96 Arterial Line 09/06/17 10:00 83 09/06/17 09:00 96 Nasal Cannula 3.00 09/06/17 09:00 98.4 75 20 121/64 (83) 96 129/62 (84) 09/06/17 09:00 75 09/06/17 08:35 74 16 110/59 (76) 97 Nasal Cannula 3 09/06/17 07:00 72 16 98/55 (69) 97 Nasal Cannula 3 09/06/17 06:00 74 16 99/53 (68) 96 Nasal Cannula 3 09/06/17 05:00 76 16 99/56 (70) 94 Nasal Cannula 3 09/06/17 04:00 78 16 104/54 (71) 96 Nasal Cannula 3 09/06/17 03:00 76 16 98/54 (69) 95 Nasal Cannula 3 09/06/17 02:00 82 16 101/59 (73) 94 Nasal Cannula 3 09/06/17 01:00 78 16 102/56 (71) 94 Nasal Cannula 3 09/06/17 00:00 74 16 100/57 (71) 95 Nasal Cannula 3 09/05/17 23:00 82 16 100/58 (72) 95 Nasal Cannula 3 09/05/17 22:00 80 16 104/56 (72) 95 Nasal Cannula 3 09/05/17 21:15 97.4 80 16 101/57 (72) 95 Nasal Cannula 3 09/05/17 20:15 83 20 120/59 (79) 95 115/61 (79) 09/05/17 19:00 83 20 123/59 (80) 95 119/61 (80) 09/05/17 18:47 20 09/05/17 18:45 85 20 124/63 (83) 95 116/62 (80) 09/05/17 18:30 83 20 112/61 (78) 95 104/59 (74) 09/05/17 18:15 97.6 85 20 95/53 (67) 95 Nasal Cannula 2 100/54 (69) 09/05/17 09:34 98.7 76 16 174/98 (123) 98 (Chalo Zacarias) Physical Examination GENERAL: Asleep in bed w/CPAP on. Readily awakens to voice & alert after. His affect is normal & he readily interacts. No apparent distress. HEENT: Normocephalic, atraumatic. MUSCULOSKELETAL: WRIGHT spontaneously & purposefully w/o difficulty. No evident clubbing or deformity. The midline lumbar spine and laterally on each side is minimally TTP, the dressing is intact w/some increased serosanguinous drainage to the superior portion. There is a NICOLASA drain to bulb suction w/serosanguinous drainage. NEUROLOGICAL: AAOx3. Speech clear & appropriate. Follows commands w/o difficulty. Sensation intact to both lower extremities to light touch. Motor strength to all major flexion & extension muscle groups of the lower extremities is 4+ to 5/5. (Chalo Zacarias) Lab, Micro, Other Results Recent Impressions Lumbar Spine X-Ray 09/05/17 0000 Signed Impressions: Service Date/Time: Tuesday, September 05, 2017 12:33 - CONCLUSION: Successful placement of surgical hardware. Home Kauffman MD Laboratory Tests Test 09/06/17 05:20 White Blood Count 11.7 TH/MM3 Red Blood Count 3.67 MIL/MM3 Hemoglobin 10.9 GM/DL Hematocrit 31.9 % Mean Corpuscular Volume 86.9 FL Mean Corpuscular Hemoglobin 29.8 PG Mean Corpuscular Hemoglobin Concent 34.3 % Red Cell Distribution Width 13.9 % Platelet Count 185 TH/MM3 Mean Platelet Volume 8.7 FL Neutrophils (%) (Auto) 85.8 % Lymphocytes (%) (Auto) 7.3 % Monocytes (%) (Auto) 6.7 % Eosinophils (%) (Auto) 0.0 % Basophils (%) (Auto) 0.2 % Neutrophils # (Auto) 10.0 TH/MM3 Lymphocytes # (Auto) 0.9 TH/MM3 Monocytes # (Auto) 0.8 TH/MM3 Eosinophils # (Auto) 0.0 TH/MM3 Basophils # (Auto) 0.0 TH/MM3 CBC Comment DIFF FINAL Differential Comment Blood Urea Nitrogen 20 MG/DL Creatinine 1.12 MG/DL Random Glucose 127 MG/DL Calcium Level 7.7 MG/DL Sodium Level 140 MEQ/L Potassium Level 3.7 MEQ/L Chloride Level 107 MEQ/L Carbon Dioxide Level 26.4 MEQ/L Anion Gap 7 MEQ/L Estimat Glomerular Filtration Rate 63 ML/MIN (Chalo Zacarias) Medical Decision Making Impression and Plan Impression: Postoperative Diagnosis: L3-4, L4-5 degenerative disk disease with spondylolisthesis and secondary spinal stenosis The patient continues to do well and has a stable sensorimotor exam to the lower extremities. NICOLASA drain output is 90 mL since surgery as of this morning. Physical Therapy recommends discharge home w/Home Health for further therapy & a front wheeled walker. Patient would like to go to an inpatient facility for therapy in order to regain his strength since he is the caregiver for his . POD #2 () s/p: L3-4, L4-L5 laminectomy, interbody arthrodhesis using PEEK cage and autologous bone graft, L3-4, L4-L5 instrumental fixation using transpedicular screws and rods, L3-4, L4-L5 posterolateral fusion using autologous bone graft and demineralized bone matrix. Microsurgical dissection Plan: Medical management per Hospitalist. Neuro checks. Monitor NICOLASA drain output. TLSO brace when OOB. Mobilise patient w/assistance. Physical Therapy eval & tx. Diet as tolerated. (Chalo Zacarias) Attending Statement The exam, history, and the medical decision-making described in the above note were completed with the assistance of the mid-level provider. I reviewed and agree with the findings presented. I attest that I had a [id number] encounter with the patient on the same day, and personally performed and documented my assessment and findings in the medical record. (Sinan Terry MD) Chalo Zacarias Sep 07, 2017 14:52 Sinan Terry MD Sep 08, 2017 23:20
[2017-09-07] MEDS: ATORVASTATIN 10 MG TAB PO SCH (20:04)
[2017-09-08] VITALS (8 sets, daily range): BP systolic 121–167; BP diastolic 73–85; PULSE 83–103; RESP 16–21; TEMP 97.7–99.7; O2SAT 94–95
[2017-09-08] MEDS: NS + KCL 20 MEQ INJ 1,000 ML IV SCH ×2 (05:34→06:12)
[2017-09-08] MEDS: amLODIPine BESYLATE 5 MG TAB PO SCH (08:26)
[2017-09-08] MEDS: METOPROLOL TARTRATE 25 MG TAB PO SCH ×2 (08:26→21:43)
[2017-09-08] MEDS: PANTOPRAZOLE SOD 20 MG DELAYED RELEASE TAB PO SCH (08:26)
[2017-09-08] MEDS: ACETAMINOPHEN 500 MG CPLT PO PRN ×2 (08:27→22:05)
[2017-09-08] MEDS: FLUTICASONE PROPIONATE 50 MCG/ACT 16 GM NASAL SPRAY EACH NARE SCH ×2 (08:27→21:44)
--- NOTE | 2017-09-08 09:42 | HHI.DCPOC ---
Discharge Care Plan Diagnosis: (1) S/P lumbar spinal fusion Goals to Promote Your Health * To prevent worsening of your condition and complications * To maintain your health at the optimal level Directions to Meet Your Goals Take your medications as prescribed Follow your dietary instruction Follow activity as directed Keep your appointments as scheduled Take your immunizations and boosters as scheduled If your symptoms worsen call your PCP, if no PCP go to Urgent Care Center or Emergency Room Smoking is Dangerous to Your Health. Avoid second hand smoke Call the 24-hour hour crisis hotline for domestic abuse at Ioana Gramajo Sep 08, 2017 09:42
--- NOTE | 2017-09-08 09:42 | HHI.DS ---
Discharge Summary Admission Date Sep 05, 2017 at 09:00 Discharge Date: Sep 08, 2017 Admitting Diagnosis s/p lumbar fusion (1) S/P lumbar spinal fusion ICD Code: Z98.1 - Arthrodesis status Brief History Mr Yi is a 81 year-old male who presented with intractable mechanical back pain and suzi evidence of L4 and L5 lower extremity radiculopathy. He has failed maximum nonsurgical management including multiple modalities of conservative treatment as well as pain management interventions by an interventional pain specialist. A surgical decompression and arthrodhesis were indicated as a last resort. CBC/BMP: 09/06/17 0520 09/06/17 0520 Significant Findings Laboratory Tests Test 09/06/17 05:20 White Blood Count 11.7 TH/MM3 (4.0-11.0) Red Blood Count 3.67 MIL/MM3 (4.50-5.90) Hemoglobin 10.9 GM/DL (13.0-17.0) Hematocrit 31.9 % (39.0-51.0) Neutrophils (%) (Auto) 85.8 % (16.0-70.0) Lymphocytes (%) (Auto) 7.3 % (9.0-44.0) Neutrophils # (Auto) 10.0 TH/MM3 (1.8-7.7) Lymphocytes # (Auto) 0.9 TH/MM3 (1.0-4.8) Blood Urea Nitrogen 20 MG/DL (7-18) Random Glucose 127 MG/DL (74-106) Calcium Level 7.7 MG/DL (8.5-10.1) Estimat Glomerular Filtration Rate 63 ML/MIN (>89) Imaging Last Impressions Lumbar Spine X-Ray 09/05/17 0000 Signed Impressions: Service Date/Time: Tuesday, September 05, 2017 12:33 - CONCLUSION: Successful placement of surgical hardware. Home Kauffman MD Hospital Course Mr. Yi underwent L3-4, L4-L5 laminectomy, interbody arthrodhesis using PEEK cage and autologous bone graft, L3-4, L4-L5 instrumental fixation using transpedicular screws and rods, L3-4, L4-L5 posterolateral fusion using autologous bone graft and demineralized bone matrix. Microsurgical dissection on Sep 05, 2017 for L3-4, L4-5 degenerative disk disease with spondylolisthesis and seconmdary spinal stenosis. Patient is doing well and Dr. Smith has cleared Mr. Yi to be discharged to SNF. Pt Condition on Discharge: Stable Discharge Disposition: Discharge to SNF Discharge Instructions DIET: Follow Instructions for: Heart Healthy Diet ACTIVITIES You can perform: Weight Bearing As Aman ADDITIONAL Activity Instructio: Avoid strenuous activities, heavy lifting over 5 lbs, overhead activities, repetitive bending, twisting, pushing, pulling or any activities which might result in stress over the spine. Avoid situation that will put at risk for falls. Use assistive device as needed for walking. Wear provided back brace when out of bed. New Medications: Walker with Front Wheels (Walker with Front Wheels) 1 Mis Mis EA .XX DIRECTED, #1 0 Refills Hydrocodone/Acetaminophen (Hydrocodone-Acetamin 5-325 mg) 5 Mg-325 Mg Tablet 1 TAB PO Q6H PRN for PAIN SCALE 5 TO 10, #20 TAB Changed Medications: Metoprolol Tartrate (Metoprolol Tartrate) 50 Mg Tab 25 MG PO BID for Heart, #60 TAB 0 Refills (Changed from: 50 MG; DAILY; 30) Continued Medications: Amlodipine (Amlodipine) 5 Mg Tab 5 MG PO DAILY for Blood Pressure Management, #30 TAB 0 Refills Atorvastatin (Atorvastatin) 10 Mg Tab 10 MG PO HS for Cholesterol Management, #30 TAB 0 Refills Fluticasone Nasal [place] (Fluticasone Nasal [place]) 50 Mcg/Act Naspr 50 MCG EACH NARE BID for Allergy Management, #1 BOTTLE 0 Refills 50 mcg/spray Meloxicam (Meloxicam) 15 Mg Tab 15 MG PO DAILY for Arthritis Pain, #30 TAB 0 Refills Omeprazole (Omeprazole) 20 Mg Tab 20 MG PO DAILY, #30 TAB 0 Refills Discontinued Medications: Valsartan-Hydrochlorothiazide (Valsartan-Hydrochlorothiazide) 160-25 Mg Tab 1 TAB PO DAILY for Blood Pressure Management, #30 TAB 0 Refills Ioana Gramajo Sep 08, 2017 09:42
--- NOTE | 2017-09-08 11:07 | HHI.PR ---
Subjective Remarks Follow up for degenerative disk disease with spondylolisthesis. Patient is doing well. No acute concerns except for back pain. Afebrile. Objective Vitals Vital Signs Date Time Temp Pulse Resp B/P (MAP) Pulse Ox O2 Delivery O2 Flow Rate FiO2 09/08/17 08:36 98.9 98 21 154/76 (102) 94 09/08/17 04:00 98.0 98 16 167/81 (109) 95 09/08/17 00:00 98.6 83 16 153/78 (103) 94 09/07/17 20:00 99.4 98 16 157/78 (104) 90 09/07/17 19:50 100 09/07/17 19:33 95 Nasal Cannula 2.00 09/07/17 16:00 90 09/07/17 15:31 99.0 90 20 149/76 (100) 95 09/07/17 12:00 89 09/07/17 11:36 98.4 99 20 149/73 (98) 93 I/O 09/07/17 09/07/17 09/07/17 09/08/17 09/08/17 09/08/17 07:00 15:00 23:00 07:00 15:00 23:00 Intake Total 831 ml 720 ml 1333 ml Output Total 500 ml 950 ml 1900 ml 60 ml Balance 331 ml -950 ml -1180 ml 1273 ml Intake Oral 0 ml 720 ml IV Total 831 ml 1333 ml Output Urine Total 500 ml 950 ml 1900 ml Drainage Total 60 ml # Voids 1 # Bowel Movements 0 0 Result Diagram: 09/06/1720 09/06/17 0520 Objective Remarks GENERAL: Alert, oriented x 3, NAD. SKIN: Warm and dry. HEAD: Normocephalic. EYES: No scleral icterus. No injection or drainage. NECK: Supple, trachea midline. No JVD or lymphadenopathy. CARDIOVASCULAR: Regular rate and rhythm without murmurs, gallops, or rubs. RESPIRATORY: Breath sounds equal bilaterally. No accessory muscle use. GASTROINTESTINAL: Abdomen soft, non-tender, nondistended. MUSCULOSKELETAL: No cyanosis, or edema. BACK: Nontender without obvious deformity. No CVA tenderness. Procedures 09/05/2017 L3-4, L4-L5 laminectomy, interbody arthrodhesis using PEEK cage and autologous bone graft, L3-4, L4-L5 instrumental fixation using transpedicular screws and rods, L3-4, L4-L5 posterolateral fusion using autologous bone graft and demineralized bone matrix. Microsurgical dissection A/P Assessment and Plan Mr. Yi is an 81-year-old male with a history of hypertension, hyperlipidemia, obstructive sleep apnea who underwent L3-L4, L4-L5 laminectomy on 09/05/2017. Hospital service was consulted for medical management. L3-L4, L4-5 degenerative disk disease with spondylolisthesis Secondary spinal stenosis s/p Laminectomy, interbody arthrodesis Pain management with acetaminophen, [place] as needed and morphine IV for breakthrough. TLSO brace Hypertension Hyperlipidemia Continue home medications amlodipine 5mg Qday and atorvastatin 10mg QHS. Obstructive sleep apnea - Home CPAP machine at night. Full code. SCDs. Discharge Plan: Likely discharge to [facility] or SNF. Discussed with Neurosurgery and case management. Claribel Fountain DO Sep 08, 2017 11:07 am
--- NOTE | 2017-09-08 15:40 | HHI.NSPN ---
(Ioana Gramajo) Note Status Status: Progress Note (Ioana Gramajo) Interval History Interval History 09/05: The patient went to the operating room for a L3-4 and L4-L5 laminectomy with interbody arthrodhesis using a PEEK cage, instrumental fixation and posterolateral fusion. Post-operatively he was transferred to the ISC unit for further care and monitoring due to hypotension. 09/06: When seen this afternoon the patient is awake and alert working on his cellphone. He says he is doing good. Across the mid lumbar region he says he is "sore" but it isn't painful. He has no pain radiation down the right lower extremity now. He denies any numbness or tingling to the extremities or any pain to the left lower extremity. He denies any headache, dizziness, shortness of breath, chest pain, palpitations, irregular heartbeat, abdominal pain or nausea. Upon examination his sensation is intact and his muscle strength is strong to the lower extremities. He does have mild tenderness to palpation across the mid lumbar back. 09/07: This afternoon the patient is asleep with his CPAP on. He awakens to voice and is alert after that. He says he a 2 out of 10 pain to the low back and no pain, numbness, tingling or weakness to the lower extremities. Physical Therapy evaluated the patient and recommended that he go home with Home Health for further therapy but the patient would like to go to an inpatient facility for several days in order to get his strength back since he is the caregiver for his . There is no change in his sensorimotor exam. 09/08: doing well, minimal drainage from NICOLASA. reports pain controlled on Tylenol. (Ioana Gramajo) Labs, Micro, & Vital Signs Results Date Time Temp Pulse Resp B/P (MAP) Pulse Ox O2 Delivery O2 Flow Rate FiO2 09/08/17 12:36 97.7 90 18 121/85 (97) 95 09/08/17 08:36 98.9 98 21 154/76 (102) 94 09/08/17 04:00 98.0 98 16 167/81 (109) 95 09/08/17 00:00 98.6 83 16 153/78 (103) 94 09/07/17 20:00 99.4 98 16 157/78 (104) 90 09/07/17 19:50 100 09/07/17 19:33 95 Nasal Cannula 2.00 09/07/17 16:00 90 Constitutional Vital Signs Date Time Temp Pulse Resp B/P (MAP) Pulse Ox O2 Delivery O2 Flow Rate FiO2 09/08/17 12:36 97.7 90 18 121/85 (97) 95 09/08/17 08:36 98.9 98 21 154/76 (102) 94 09/08/17 04:00 98.0 98 16 167/81 (109) 95 09/08/17 00:00 98.6 83 16 153/78 (103) 94 09/07/17 20:00 99.4 98 16 157/78 (104) 90 09/07/17 19:50 100 09/07/17 19:33 95 Nasal Cannula 2.00 09/07/17 16:00 90 (Ioana Gramajo) Review of Systems Constitutional: DENIES: Fever, Chills Musculoskeletal: COMPLAINS OF: Back pain (Ioana Gramajo) Physical Exam GENERAL: NAD HEENT: Normocephalic, atraumatic. MUSCULOSKELETAL: WRIGHT spontaneously & purposefully w/o difficulty. No evident clubbing or deformity. The midline lumbar spine and laterally on each side is minimally TTP, the dressing is intact w/some increased serosanguinous drainage to the superior portion. There is a NICOLASA drain to bulb suction w/ minimal serosanguinous drainage. NEUROLOGICAL: AAOx3. Speech clear & appropriate. Follows commands w/o difficulty. Sensation intact to both lower extremities to light touch. Motor strength to all major flexion & extension muscle groups of the lower extremities is 4+ to 5/5. (Ioana Gramajo) Medications Current Medications Current Medications Medications (Trade) Dose Ordered Sig/Mart Route PRN Reason Start Time Stop Time Status Last Admin Dose Admin Potassium Chloride/Sodium Chloride 1,000 ml @ 100 mls/hr Q10H IV 09/05/17 17:34 09/08/17 06:12 Amlodipine Besylate (Norvasc) 5 mg DAILY PO 09/06/17 09:00 4/23/18 08:26 Atorvastatin Calcium (Lipitor) 10 mg HS PO 09/05/17 21:00 09/07/17 20:04 Fluticasone Propionate (Flonase Chadd Spr) 1 spray BID EACH NARE 09/05/17 21:00 09/08/17 08:27 Pantoprazole Sodium (Protonix) 20 mg DAILY PO 09/06/17 09:00 09/08/17 08:26 Acetaminophen (Tylenol) 500 mg Q4H PRN PO MARIE, fever>100.4, pain 1-4 09/06/17 17:45 09/08/17 08:27 Morphine Sulfate (Morphine Inj) 4 mg Q4H PRN IV PUSH BREAKTHROUGH PAIN 09/06/17 14:00 09/07/17 00:03 Acetaminophen/ Hydrocodone Bitart (Onia 5-325 Mg) 1 tab Q6H PRN PO PAIN SCALE 5 TO 10 09/06/17 13:45 09/07/17 20:04 Metoprolol Tartrate (Lopressor) 25 mg BID PO 09/07/17 09:00 09/08/17 08:26 (Ioana Gramajo) Medical Decision Making MDM Remarks 81 y/o male s/p L3-4 and L4-L5 laminectomy with interbody arthrodhesis using a PEEK cage, instrumental fixation and posterolateral fusion (Ionaa Gramajo) Plan Plan Remarks Magnesium citrate for constipation, Discharge planning to SNF once patient has bowel movement, continue current pain regimen, dc NICOLASA drain medical management following, appreciate assistance, TLSO when out of brace (Ioana Gramajo) Attending Statement The exam, history, and the medical decision-making described in the above note were completed with the assistance of the mid-level provider. I reviewed and agree with the findings presented. I attest that I had a [id number] encounter with the patient on the same day, and personally performed and documented my assessment and findings in the medical record. (Mikel Smith MD) Ioana Gramajo Sep 08, 2017 15:40 Mikel Smith MD Sep 09, 2017 21:23
[2017-09-08] MEDS ORDERED: MAGNESIUM CITRATE SOLN 300 ML BTL PO ONE (15:45)
[2017-09-08] MEDS: ATORVASTATIN 10 MG TAB PO SCH (21:43)
[2017-09-09] VITALS: BP 154/70; PULSE 95; TEMP 99.1
[2017-09-09] MEDS: NS + KCL 20 MEQ INJ 1,000 ML IV SCH (01:35)
[2017-09-09 04:00] VITALS: BP 147/72; PULSE 96; RESP 18; TEMP 99; O2SAT 98
[2017-09-09] MEDS: METOPROLOL TARTRATE 25 MG TAB PO SCH (08:01)
[2017-09-09] MEDS: amLODIPine BESYLATE 5 MG TAB PO SCH (08:01)
[2017-09-09] MEDS: PANTOPRAZOLE SOD 20 MG DELAYED RELEASE TAB PO SCH (08:01)
[2017-09-09] MEDS: FLUTICASONE PROPIONATE 50 MCG/ACT 16 GM NASAL SPRAY EACH NARE SCH (08:02)
[2017-09-09 08:59] VITALS: BP 138/85; PULSE 94; RESP 18; TEMP 98.1; O2SAT 97
[2017-09-09] MEDS: ACETAMINOPHEN 500 MG CPLT PO PRN (12:03)
== END 2017-09-09 12:11 | DRG 455 ==
LOC: EDUNIT# 13:15 → HSDI 09-05 09:00 → HPAC 09-05 22:53 → N03B 09-06 08:43 → N05A 09-06 18:13
PROVIDERS: ADMIT Neurological Surgery; ATTEND Neurological Surgery
PROC: 0SG1071 Fusion of 2 or more Lumbar Vertebral Joints with Autologous Tissue Substitute, Posterior Approach, Posterior Column, Open Approach (ICD-10-PCS; 2017-09-05)
PROC: 0SB20ZZ Excision of Lumbar Vertebral Disc, Open Approach (ICD-10-PCS; 2017-09-05)
PROC: 4A11X4G Monitoring of Peripheral Nervous Electrical Activity, Intraoperative, External Approach (ICD-10-PCS; 2017-09-05)
PROC: 0SG10AJ Fusion of 2 or more Lumbar Vertebral Joints with Interbody Fusion Device, Posterior Approach, Anterior Column, Open Approach (ICD-10-PCS; principal; 2017-09-05 11:44)
DX: M51.16 Intervertebral disc disorders with radiculopathy, lumbar region (principal); D64.9 Anemia, unspecified; I10 Essential (primary) hypertension; M48.061 Spinal stenosis, lumbar region without neurogenic claudication; M43.16 Spondylolisthesis, lumbar region; G47.33 Obstructive sleep apnea (adult) (pediatric); E78.5 Hyperlipidemia, unspecified; K59.00 Constipation, unspecified; I95.81 Postprocedural hypotension
CPT/HCPCS: 72100; 76000; 80048; 85025; 86850; 86900; 86901; 94150; C1713; J0690; J1100; J1170; J1644; J2175; J2250; J2270; J2370; J2405; J3010; J3370; J3480; J7040; J7120; L0200; L0484